=== PATIENT | female | born 1955 | race Caucasian/White ===

== ENCOUNTER 2016-09-15 16:59 | Inpatient (IN) ==
[2016-09-15] MEDS ORDERED: *HR* HYDROmorphone (PF) 1 MG/ML SYRINGE IVP ONE (20:17)
[2016-09-15] MEDS ORDERED: Ipratropium/Albuterol Neb 3 ML IH ONE (20:17)
[2016-09-15] MEDS ORDERED: Naloxone 0.4 MG/ML INJ IVP PRN (20:21)
[2016-09-15] MEDS ORDERED: Ondansetron 4 MG/2 ML VIAL IVP PRN (20:21)
[2016-09-15] MEDS ORDERED: *HR* HYDROmorphone (PF) 1 MG/ML SYRINGE IVP PRN (20:21)
[2016-09-15] MEDS ORDERED: *HR* HYDROcodone/Acet 7.5/325 mg TABLET PO PRN ×2 (20:24→20:31)
[2016-09-15] MEDS ORDERED: Ipratropium/Albuterol Neb 3 ML IH PRN (20:26)
[2016-09-15] MEDS ORDERED: 0.9 % Sodium Chloride 250 ML IVC PRN (20:30)
--- NOTE | 2016-09-15 20:32 | Internal Med History&Physical ---
Date of Encounter: 09/15/16 Time of Encounter: 20:05 Assessment and Plan (1) Hip fracture, right Current visit: Yes Status: Acute CT pelvis reports of right subcapital hip fracture with mild angulation. No dislocation Ortho follow up with Dr. Hoyos pain control patient will need cardiac clearance prior to surgery given severity of aortic regurgitation. NPO after midnight Qualifiers: Encounter type: initial encounter Fracture type: closed Qualified Code(s) : S72.001A - Fracture of unspecified part of neck of right femur, initial encounter for closed fracture (2) Hypertension Current visit: Yes Status: Chronic BP within acceptable range continue home meds Qualifiers: Hypertension type: essential hypertension Qualified Code(s): I10 - Essential (primary) hypertension (3) Aortic regurgitation Current visit: Yes Status: Chronic 2D echo from September 01, 2016: Normal LV systolic function with LVEF of 70%, mild LV diastolic dysfunction. Moderate to severe aortic regurgitation noted. SIMONE recommended for further evaluation Patient will need cardiac clearance prior to surgery Cardiology consultation requested Qualifiers: Cardiac valve disease etiology: etiology unspecified Qualified Code(s): I35.1 - Nonrheumatic aortic (valve) insufficiency (4) DVT prophylaxis Current visit: Yes Status: Acute Heparin SQ (5) Tobacco abuse Current visit: Yes Status: Acute smoking cessation counseling provided nicotine replacement therapy provided (6) COPD (chronic obstructive pulmonary disease) Current visit: Yes Status: Acute Not in acute exacerbation continue bronchodilator support and home dose of symbicort O2 supplementation goal O2 sat: 89-92% Qualifiers: COPD type: unspecified COPD Qualified Code(s): J44.9 - Chronic obstructive pulmonary disease, unspecified Internal Medicine - H&P: HPI Chief complaint: Transfer from [place] for right hip fracture Admitted From: Intrahospital Transfer Plans for Post Hospital Care: Transfer [facility] Facility History of present illness: Ms. Vásquez is a 61 year old female with PMH of HTN, COPD on LTOT, Aortic regurgitation, tobacco abuse, chronic back pain who is transferred from [place] for further management of right hip fracture. Patient states she was walking to the bathroom with her walker at home and her foot got caught in a plastic bag leading to her fall. Reports of having history of chronic back pain for which she is on opioid therapy. Denies any previous falls or fractures. Prior to her transfer she received Dilaudid 1mg IV. At this time she is noted to be hypotensive and mildly short of breath. States she wears 2LNC at rest and 4L while ambulating. Reports of being an every day smoker. States the pain is controlled if she doesn't move. Denies any chest pain or other discomfort at this time. Labs from [place]: WBC: 8.0 Hgb: 13.5 Hct: 39.4 Plt: 279 BMP: Na: 131 K: 4.2 Cl: 96 CO2: 29 Glucose: 107 BUN: 11 Crea: 0.54 Ca: 9.7 INR: 1.04 PTT: 2707 PT: 11.3 Past Med Surg Social Fam HX - Past Medical History Medical history: COPD, hypertension Internal Medicine - H&P: Meds Allergies morphine Allergy (Verified 08/15/15 11:43) Itching propoxyphene [From Darvocet-N] Allergy (Verified 08/15/15 11:42) Wheezing tramadol [From Ultram] Allergy (Verified 10/23/15 09:31) Vomiting All Systems PM: A 10-system review of systems was performed and is negative for pertinent findings except as documented above in the HPI. - Constitutional Constitutional: as per HPI - Constitutional General appearance: Present: cooperative, A&O X 3, no acute distress, answers questions appropriately - Head Head exam: Present: atraumatic, normocephalic - Eye Eye exam: Present: conjuntiva pink, sclera anicteric - Respiratory Respiratory exam: Present: decreased breath sounds. Absent: respiratory distress, wheezes - Cardiovascular Cardiovascular exam: Present: RRR, +S1, +S2, systolic murmur. Absent: diastolic murmur, gallop, rubs - GI/Abdominal GI/Abdominal exam: Present: normal bowel sounds, soft, no peritoneal signs. Absent: distended, tenderness - Extremities Exam Extremities exam: Present: warm, radial pulses palpable and symetrical. Absent : calf tenderness, pedal edema - Neurological Exam Neurological exam: Present: alert, oriented X3 - Psychiatric Psychiatric exam: Present: normal affect, normal mood
[2016-09-15] MEDS ORDERED: Nicotine 14 MG PATCH.TD24 TD PRN (20:45)
[2016-09-15] MEDS: Ipratropium/Albuterol Neb 3 ML IH SCH (21:19)
[2016-09-15] MEDS: Budesonide/Formoterol 160/4.5 MDI IH SCH (21:21)
[2016-09-16] MEDS: *HR* HYDROmorphone (PF) 1 MG/ML SYRINGE IVP PRN ×2 (02:09→09:07)
[2016-09-16] MEDS: Ipratropium/Albuterol Neb 3 ML IH SCH ×4 (04:35→22:07)
[2016-09-16 05:40] LABS: INR 1.1; Prothrombin Time 12.3 Seconds (9.4-12.1)
[2016-09-16 05:47] LABS: BUN/Creatinine Ratio 18 (6-26); Blood Urea Nitrogen 12 mg/dL (7-20); Calcium 9.4 mg/dL (8.6-10.8); Carbon Dioxide 22 mEq/L (19-29); Chloride 102 mEq/L (98-109); Glucose 95 mg/dL (70-99); Magnesium 1.9 mg/dL (1.6-2.6); Osmolality,Calculated 274 (280-300); Phosphorous 3.9 mg/dL (2.3-4.7); Potassium 3.8 mEq/L (3.5-4.5); Sodium 132 mEq/L (136-145); eGFR For African Americans > 60 (> 60); eGFR For Non-African Americans > 60 (> 60)
[2016-09-16 05:54] LABS: Basophils % 0.7 %; Eosinophils # 0.1 K/mcL (0.0-0.6); Hematocrit 35.9 % (35.3-44.9); Hemoglobin 12.1 g/dL (11.5-15.4); Immature Granulocytes % 0.3 % (0-4); Lymphocytes % 27.1 %; Mean Corpuscular HGB Conc 33.7 g/dL (31.6-35.5); Mean Corpuscular Hemoglobin 31.5 pg (28.0-33.3); Mean Corpuscular Volume 93.5 fL (83.0-100.0); Mean Platelet Volume 9.5 fL (9.4-12.4); Monocytes # 0.5 K/mcL (0.0-1.3); Monocytes % 7.6 %; Platelet Count 242 K/mcL (140-400); Red Blood Count 3.84 M/mcL (3.82-4.97); Red Cell Distribution Width 14.3 % (11.5-14.5); Segmented Neutrophils % 63.3 %
[2016-09-16] MEDS ORDERED: *HR* Heparin 5,000 UNIT/ML VIAL SQ SCH (06:00)
[2016-09-16 06:29] LABS: Lymphocytes # 1.7 K/mcL (0.6-4.6); Neutrophils # 3.9 K/mcL (1.6-8.9)
--- NOTE | 2016-09-16 07:29 | Orthopedic Consult Note ---
Date of Encounter: 09/16/16 Time of Encounter: 07:27 Assessment and Plan (1) Hip fracture, right Current Visit: Yes Status: Acute Patient sustained a Right hip subcapital fracture. XRAYS were reviewed and discussed with . Patient was ambulatory prior to fall. Recommending surgical intervention today, Right Hip Pinning. Consent was reviewed and discussed with patient, patient signed. All questions were addressed and answered. Recent echo was 09/01/16, awaiting cardiology to review and see patient for pre- operative risk assessment. Anticipate surgery today at 1300. Keep NPO. Continue with pain control. NWB, bed rest. Qualifiers: Encounter type: initial encounter Fracture type: closed Qualified Code(s) : S72.001A - Fracture of unspecified part of neck of right femur, initial encounter for closed fracture History of Present Illness Chief complaint: Fall - [facility] HPI: Ms. Vásquez is a 61 year old female, who sustained a mechanical fall at home, while walking to her bathroom. She tripped over a bag and landed on her Right side. She was transferred from [facility] for orthopedic consultation and surgical intervention of her Right subcapital hip fracture. Pain is well controlled in bed, comfortable. A&O x 3. Admits to inability to ambulate secondary to pain. Pain radiates to groin, denies N/T or radiation down RLE. Pulses and sensation intact. Denies prior hip fracture or trauma. Denies LOC or head injury with fall. PMH: Aortic regurg, last Echo 09/01/16; COPD, HTN. Past Med Surg Social Fam HX - Past Medical History Medical history: COPD, hypertension Psychiatric history: no psych history - Past Surgical History Surgical History: orthopedic, other - Social History Smoking Status: Current every day smoker Packs per day: 0.5 pk Smokeless Tobacco Status: No Alcohol use: none Drug use: marijuana - Family History Mother Living Status: Hx Family Cardiac Disorders: Yes (CVA) Medications and Allergies Albuterol Sulfate [Ventolin Hfa] 2 puff IH Q6H MDD wheezing 09/15/16 [History] Aspirin [Lo-Dose Aspirin EC] 81 mg PO DAILY 09/15/16 [History] Cholecalciferol (D-3) [Vitamin D] 1,000 unit PO QWEEK 09/15/16 [History] Fluticasone/Salmeterol [Advair 250-50 Diskus] 1 puff IH BID 09/15/16 [History] Lisinopril-HCTZ 20-12.5 [Prinzide 20-12.5] 1 each PO DAILY 09/15/16 [History] Montelukast [Singulair] 10 mg PO DAILY 09/15/16 [History] Allergies morphine Allergy (Verified 08/15/15 11:43) Itching propoxyphene [From Darvocet-N] Allergy (Verified 09/15/16 20:32) Vomiting tramadol [From Ultram] Allergy (Verified 10/23/15 09:31) Vomiting All Systems Reviewed: A 10-system review of systems was performed and is negative for pertinent findings except as documented above in the HPI. - Constitutional Constitutional: as per HPI - Cardiovascular Cardiovascular: no chest pain, no syncope - Respiratory Respiratory: no cough, no dyspnea on exertion - Musculoskeletal Musculoskeletal: as per HPI Physical Exam - Constitutional Vitals: Temp Pulse Resp BP Pulse Ox 97.9 F 74 16 87/56 97 09/16/16 07:22 09/16/16 07:22 09/16/16 07:22 09/16/16 07:22 09/16/16 07:22 - Fracture right hip Appearance: swelling, other (ER and shortened RLE) Compartments: soft Distal extremity neurovascularly intact: Yes Proximal joint involvement: No Distal joint involvement: No Results - Labs Result Diagrams: 09/16/16 05:19 09/16/16 05:19 Labs: Abnormal lab results PT 12.3 Seconds (9.4-12.1) H 09/16/16 05:19 Sodium 132 mEq/L (136-145) L 09/16/16 05:19 Calculated Osmolality 274 (280-300) L 09/16/16 05:19 H & H 09/16/16 Range/Units 05:19 Hgb 12.1 (11.5-15.4) g/dL Hct 35.9 (35.3-44.9) % All other labs normal. - Diagnostic results Hip x-ray: report reviewed, image reviewed Consult Discharge Plan - Plan Referrals: Quang Singh, [facility] [employer] [facility] [Primary Care Provider] -
[2016-09-16] MEDS ORDERED: Aspirin 81 MG TAB.CHEW PO SCH (09:00)
[2016-09-16] MEDS ORDERED: Lisinopril-HCTZ 20-12.5mg TABLET PO SCH (09:00)
--- NOTE | 2016-09-16 09:57 | Cardiology Consult Note ---
Date of Encounter: 09/16/16 Time of Encounter: 09:00 Assessment and Plan (1) Hip fracture, right Current Visit: Yes Status: Acute Per cardiology: -Patient with hip fracture after mechanical fall. -Seen by orthopedics, plan for surgery today. -Management per primary and orthopedic services. Qualifiers: Encounter type: initial encounter Fracture type: closed Qualified Code(s) : S72.001A - Fracture of unspecified part of neck of right femur, initial encounter for closed fracture (2) Aortic regurgitation Current Visit: Yes Status: Chronic Per cardiology: -Echo 09/01/16 with LVEF 70%, mild diastolic dysfunction, linear echodensity in LVOT consistent with subaortic membrance, mild LVOT obstruction with peak gradiant 26mmHg, aortic valve appears mild-moderately calcified, moderate- severe aortic regurgitation, probably severe, all wall segments with normal motion. -SIMONE was recommended per echo report. -Patient was scheduled to see tomorrow in clinic to discuss echo and options. -Patient denies peripheral edema. -Patient denies chest pain. -Patient denies increased shortness of breath, has baseline shortness of breath. -ECG with sinus rhythm. -Further work up for valve will be assessed in outpatient setting. Qualifiers: Cardiac valve disease etiology: etiology unspecified Qualified Code(s): I35.1 - Nonrheumatic aortic (valve) insufficiency (3) Pre-operative cardiovascular examination Current Visit: Yes Status: Acute Per cardiology: -Cardiac clearance for hip fracture. Surgery planned for today. -Moderate-probably severe aortic regurgitation and subaortic membrane. -Per discussion with , resonable to proceed with surgery from cardiac standpoint. However, patient is intermediate to high risk given her probable severe aortic regurgitation and subaortic membrane. -Anesthesia needs to be made aware to closely monitor hemodynamics and fluid volume status during surgery. Discussion w patient/family: The assessment and plan as outlined above was discussed with the patient who expressed understanding and agreement. All questions were answered. Thank you for involving us in the care of your patient. Please call with any questions. Discussed and reviewed with . History of Present Illness Consult date: 09/15/16 Requesting physician: Bessy Ng Consult reason: cardiac clearance Chief complaint: hip pain History of present illness: Ms. Fahad is a 61 year old female with a relevant past medical history of COPD , carotid stenosis, HTN, tobacco abuse, and aortic regurgitation. Patient presented to [facility] after fall at home. Patient states she tripped over a bag. Patient was noted to have hip fracture and was seen by orthopedics. Patient states she did not lose consciousness with this fall, however she has had two syncopal episodes in the past month. Patient was seen by July to establish cardiac care. Patient had echocardiogram completed. Patient denies chest pain. Patient denies increased shortness of breath. Patient states shortness of breath is about baseline. Patient states she wears 2-4LPM per nasal cannula of O2 at home, most of the time. Patient follows with pulmonary. Patient states fatigue is about baseline. Past Med Surg Social Fam HX - Past Medical History Attestation: Yes The following information was validated with the patient. Source: patient, old records reviewed Medical history: COPD, hypertension Psychiatric history: no psych history - Past Surgical History Surgical History: orthopedic, other - Social History Smoking Status: Current every day smoker Packs per day: 0.5 pk Smokeless Tobacco Status: No Alcohol use: none Drug use: marijuana - Family History Mother Living Status: Hx Family Cardiac Disorders: Yes (CVA) Medications and Allergies Albuterol Sulfate [Ventolin Hfa] 2 puff IH Q6H MDD wheezing 09/15/16 [History] Aspirin [Lo-Dose Aspirin EC] 81 mg PO DAILY 09/15/16 [History] Cholecalciferol (D-3) [Vitamin D] 1,000 unit PO QWEEK 09/15/16 [History] Fluticasone/Salmeterol [Advair 250-50 Diskus] 1 puff IH BID 09/15/16 [History] Lisinopril-HCTZ 20-12.5 [Prinzide 20-12.5] 1 each PO DAILY 09/15/16 [History] Montelukast [Singulair] 10 mg PO DAILY 09/15/16 [History] Allergies morphine Allergy (Verified 08/15/15 11:43) Itching propoxyphene [From Darvocet-N] Allergy (Verified 09/15/16 20:32) Vomiting tramadol [From Ultram] Allergy (Verified 10/23/15 09:31) Vomiting All Systems Review: A 10-system review of systems was performed and is negative for pertinent findings except as documented above in the HPI. - Cardiovascular Cardiovascular: as per HPI, lightheadedness, syncope - Musculoskeletal Musculoskeletal: other (Hip pain) Physical Examination Vital Signs, Last 4 Hours Temp Pulse Resp BP Pulse Ox 09/16/16 09:02 113/59 09/16/16 07:22 97.9 F 74 16 87/56 97 General: Conversant, No Apparent Distress HEENT: Atraumatic, Normocephaly, Mucus Membranes Moist Neck: No JVD, Normal carotid pulses Cardiac: Reg Rate and Rhythm, Normal S1 and S2, Other (Diastolic murmur noted. ) Lungs: Normal Breath Sounds, No Wheeze, Rales, Rhonchi Neuro: Alert and responsive, No focal deficits noted Abdomen: Soft, Non-Tender Skin: No rashes noted on visualized skin Musculoskeletal: No Chest Wall Tenderness Extremities: No Clubbing, No Cyanosis, No Edema, Normal Pulses Results 09/16/16 05:19 09/16/16 05:19 Lab Results Active Medications Hydrocodone Bitart/Acetaminophen ([place] 7.5-325 Mg) 1 tab PO Q6HR PRN PRN Reason: Moderate Pain Stop: 03/17/17 20:25 Albuterol/Ipratropium (Duoneb) 3 ml IH [id number] PRN; Protocol PRN Reason: Shortness Of Breath/Wheezing Stop: 03/17/17 20:27 Albuterol/Ipratropium (Duoneb) 3 ml IH [id number] [place] PRN Reason: Protocol Stop: 03/17/17 22:01 Last Admin: 09/16/16 04:35 Dose: 3 ml Aspirin (Aspirin) 81 mg PO DAILY [facility] Stop: 03/18/17 09:01 Last Admin: 09/16/16 09:04 Dose: Not Given Budesonide/Formoterol Fumarate (Symbicort) 2 puff IH BIDR [place] PRN Reason: Protocol Stop: 03/17/17 22:01 Last Admin: 09/15/16 21:21 Dose: 2 puff Docusate Sodium (Colace) 100 mg PO BID PRN PRN Reason: Constipation Stop: 03/17/17 20:22 Lisinopril/HCTZ (Prinzide 20-12.5) 1 each PO DAILY [facility] Stop: 03/18/17 09:01 Last Admin: 09/16/16 07:28 Dose: Not Given Heparin Sodium (Porcine) (Heparin) 5,000 unit SQ Q12HCO [facility] Stop: 03/18/17 06:01 Last Admin: 09/16/16 06:39 Dose: 5,000 unit Hydromorphone HCl (Dilaudid) 1 mg IVP Q4HR PRN PRN Reason: Severe Pain (7-10) Stop: 03/17/17 20:22 Last Admin: 09/16/16 09:07 Dose: 1 mg Sodium Chloride (0.9 % Sodium Chloride) 250 mls @ 937.5 mls/hr IVC .Q16M PRN PRN Reason: MAP<65 Stop: 03/17/17 20:31 Last Infusion: 09/16/16 07:30 Dose: Infused Montelukast Sodium (Singulair) 10 mg PO DAILY [facility] Stop: 03/18/17 09:01 Last Admin: 09/16/16 09:03 Dose: Not Given Naloxone HCl (Narcan) 0.4 mg IVP Q2MIN PRN PRN Reason: Opioid Reversal Stop: 03/17/17 20:22 Nicotine (Nicoderm) 14 mg TD DAILY PRN; Protocol PRN Reason: nicotine withdrawal Stop: 03/18/17 09:01 Ondansetron HCl (Zofran) 4 mg IVP Q6HR PRN PRN Reason: Nausea And Vomiting Stop: 03/17/17 20:22 Laboratory Tests 09/16/16 09/16/16 05:19 05:19 Hgb 12.1 Potassium 3.8 Creatinine 0.65 Magnesium 1.9 - Imaging and Cardiology Echo: report reviewed - EKG Interpretation EKG results cardiology: personally reviewed (ECG from outside facility reviewed with sinus rhythm, HR 89.), other (Not on telemetry) Consult Discharge Plan - Plan Referrals: Quang Singh, [facility] [employer] [Primary Care Provider] -
[2016-09-16] MEDS: Budesonide/Formoterol 160/4.5 MDI IH SCH ×2 (10:10→22:07)
--- NOTE | 2016-09-16 11:10 | Anesthesia Evaluation PreOp ---
Date of Encounter: 09/16/16 Time of Encounter: 11:08 - Past History Planned Operation: r hip tfn Cardiac History: HTN, Other (echo 09/05: ef 70, mild LVOT obstruction at rest, nl rv. 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, Other (carotid doppler 08/05: r prox ica severe 60-79, l ica mod 40-59) Other Medical History: Denies Any Significant HX Anesthesia History: No Prior Anesthetic Complications, Past Anesthesia Alcohol Use: none Drug use: marijuana Medications and Allergies Albuterol Sulfate [Ventolin Hfa] 2 puff IH Q6H MDD wheezing 09/15/16 [History] Aspirin [Lo-Dose Aspirin EC] 81 mg PO DAILY 09/15/16 [History] Cholecalciferol (D-3) [Vitamin D] 1,000 unit PO QWEEK 09/15/16 [History] Fluticasone/Salmeterol [Advair 250-50 Diskus] 1 puff IH BID 09/15/16 [History] Lisinopril-HCTZ 20-12.5 [Prinzide 20-12.5] 1 each PO DAILY 09/15/16 [History] Montelukast [Singulair] 10 mg PO DAILY 09/15/16 [History] Allergies morphine Allergy (Verified 08/15/15 11:43) Itching propoxyphene [From Darvocet-N] Allergy (Verified 09/15/16 20:32) Vomiting tramadol [From Ultram] Allergy (Verified 10/23/15 09:31) Vomiting - Meds/Allergy Pre-op Review Medications Reviewed: Yes Allergies Reviewed: Yes Beta Blockers on Current Med List: No Anesthesia Results - Labs 09/16/16 05:19 09/16/16 05:19 Anesthesia Exam O2 Sat Height 1.73 m Weight 65.3 kg O2 Sat by Pulse Oximetry 97 O2 Sat by Pulse Oximetry 97 O2 Sat by Pulse Oximetry 98 O2 Sat by Pulse Oximetry 99 O2 Sat by Pulse Oximetry 92 O2 Sat by Pulse Oximetry 99 O2 Sat by Pulse Oximetry 96 O2 Sat by Pulse Oximetry 95 Vital Signs Resp Pulse Ox 18 95 09/15/16 20:32 09/15/16 20:32 Vital Signs/O2 Sat/Glucose, Most Current Temp Pulse Resp BP Pulse Ox 09/16/16 10:12 16 97 09/16/16 09:02 113/59 09/16/16 07:22 97.9 F 74 16 87/56 97 Height: 1.73 Weight: 65 NPO (# of Hours): >8 - HEENT Pupil (Motor): Pupils equal - 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 disc all potentials with pt.) Modified Circle Scale for Level of Consciousness: Cooperative, oriented, and tranquil Anesthetic Plan: General Monitoring Plan: Standard Monitors Recovery Plan: PACU
[2016-09-16] MEDS ORDERED: Lidocaine -MPF 2% 2 ML VIAL ONE (14:48)
[2016-09-16] MEDS ORDERED: *HR* Propofol 200 MG/20 ML VIAL IVP ONE (14:48)
[2016-09-16] MEDS ORDERED: *HR* Succinylcholine 200 MG/10 ML VIAL IVP ONE (14:48)
[2016-09-16] MEDS ORDERED: *HR* Midazolam HCl 2 MG/2 ML VIAL ONE (14:50)
[2016-09-16] MEDS ORDERED: *HR* FentaNYL (PF) 100 MCG/2 ML VIAL ONE ×2 (14:50→15:38)
[2016-09-16] MEDS ORDERED: *HR* HYDROmorphone (PF) 1 MG/ML SYRINGE IVP PRN ×3 (14:51→17:24)
[2016-09-16] MEDS ORDERED: Ondansetron 4 MG/2 ML VIAL IVP ONE ×2 (14:51→17:24)
[2016-09-16] MEDS ORDERED: *HR* Labetalol 20 MG/4 ML SYRINGE IVP PRN ×2 (14:51→17:24)
[2016-09-16] MEDS ORDERED: Albuterol 2.5 MG/3 ML NEBULIZER IH ONE ×2 (14:51→17:24)
[2016-09-16] MEDS ORDERED: *HR* Meperidine 25 MG/ML SYRINGE IVP PRN ×2 (14:51→17:24)
[2016-09-16] MEDS ORDERED: Naloxone 0.4 MG/ML INJ IVP PRN ×4 (14:51→17:24)
[2016-09-16] MEDS ORDERED: EPHEDrine 50 MG/ML VIAL ONE (14:58)
[2016-09-16] MEDS ORDERED: 0.9 % Sodium Chloride 1,000 ML IVC SCH (15:00)
[2016-09-16] MEDS ORDERED: Dexamethasone 4 MG/ML VIAL ONE (15:10)
[2016-09-16] MEDS ORDERED: Ondansetron 4 MG/2 ML VIAL ONE (15:10)
--- NOTE | 2016-09-16 15:31 | Orthopedic Operative Note ---
Date of procedure: 09/16/16 Pre-op diagnosis: Nondisplaced right hip fracture Post-op diagnosis: same Procedure: Procedure: Right hip open pinning Estimated blood loss: 5 cc Hardware: 2 Synthes 7.3 cannulated metal screws Procedural Notes: Nondisplaced femoral neck fracture. Operative procedure: The patient was brought to the operating room and placed on the operating room table. After general anesthesia was administered the well leg was place in the well leg bennett and the operative leg was placed in the fracture leg bennett. All pressure points were padded appropriately. The operative extremity was prepped and draped in the sterile surgical fashion patient received IV antibiotic prior to skin incision. Using fluoroscopic assistance a guidepin was placed through a small stab incision on the lateral aspect of the femur. Placed through the lateral femur across the fracture site into the femoral head addition of the guidepin was found to be acceptable in AP and lateral planes. A second guidepin was placed in an appropriate position and confirmed with fluoroscopy. Two 7.3 cannulated screws were placed over the guidepins, and their position was confirmed with fluoroscopy as well. Hardware as well as fracture site was well reduced and well positioned. Wound was irrigated and closed with a 2-0 Monocryl suture The patient was placed in a sterile dressing The patient was extubated and transferred to the recovery room in stable condition. Anesthesia: GETA Surgeon: Willis Hoyos Condition: stable Disposition: PACU
--- NOTE | 2016-09-16 16:22 | Internal Med Progress Note ---
Date of Encounter: 09/16/16 Time of Encounter: 16:20 - Assessment and plan (1) Hip fracture, right Current Visit: Yes Status: Acute Assessment and plan: Patient sustained a Right hip subcapital fracture. underwent Right hip open pinning with DR. Hoyos today. post op care as per ortho ensure DVT prophylaxis. Qualifiers: Encounter type: initial encounter Fracture type: closed Qualified Code(s) : S72.001A - Fracture of unspecified part of neck of right femur, initial encounter for closed fracture (2) Hypertension Current Visit: Yes Status: Chronic Assessment and plan: BP within acceptable range continue home meds Qualifiers: Hypertension type: essential hypertension Qualified Code(s): I10 - Essential (primary) hypertension (3) COPD (chronic obstructive pulmonary disease) Current Visit: Yes Status: Acute Assessment and plan: not in exacerbation, contiue home meds Qualifiers: COPD type: unspecified COPD Qualified Code(s): J44.9 - Chronic obstructive pulmonary disease, unspecified (4) Aortic regurgitation Current Visit: Yes Status: Chronic Assessment and plan: Per cardiology: -Echo 09/01/16 with LVEF 70%, mild diastolic dysfunction, linear echodensity in LVOT consistent with subaortic membrance, mild LVOT obstruction with peak gradiant 26mmHg, aortic valve appears mild-moderately calcified, moderate- severe aortic regurgitation, probably severe, all wall segments with normal motion. -SIMONE was recommended per echo report. -Patient was scheduled to see tomorrow in clinic to discuss echo and options. -Patient denies peripheral edema. -Patient denies chest pain. -Patient denies increased shortness of breath, has baseline shortness of breath. -ECG with sinus rhythm. -Further work up for valve will be assessed in outpatient setting. Qualifiers: Cardiac valve disease etiology: etiology unspecified Qualified Code(s): I35.1 - Nonrheumatic aortic (valve) insufficiency - Subjective Interval history: seen at the bedside, he presents with hip fracture caused by mechanical fall. She is at intermediate-high risk of cardiovascular complications as per cardiology. denies any complains at the bedside, planned for surgery today with dr. Hoyos - Constitutional Vitals: Temp Pulse Resp BP Pulse Ox 98.6 F 85 14 127/63 92 09/16/16 15:45 09/16/16 16:05 09/16/16 16:05 09/16/16 16:05 09/16/16 16:05 General appearance: Present: cooperative, A&O X 3, no acute distress, answers questions appropriately Exam: HEENT: Atraumatic, Normocephaly, Mucus Membranes Moist Neck: No JVD, Normal carotid pulses Cardiac: Reg Rate and Rhythm, Normal S1 and S2, Other (Diastolic murmur noted. ) Lungs: Normal Breath Sounds, No Wheeze, Rales, Rhonchi Neuro: Alert and responsive, No focal deficits noted Abdomen: Soft, Non-Tender Skin: No rashes noted on visualized skin Musculoskeletal: No Chest Wall Tenderness Extremities: No Clubbing, No Cyanosis, No Edema, Normal Pulses Internal Medicine: Result - Labs CBC & Chem 7: 09/16/16 05:19 09/16/16 05:19 Labs: Short CBC 09/16/16 Range/Units 05:19 WBC 6.1 (4.3-11.1) K/mcL Hgb 12.1 (11.5-15.4) g/dL Hct 35.9 (35.3-44.9) % Plt Count 242 (140-400) K/mcL Neutrophils # 3.9 (1.6-8.9) K/mcL BMP 09/16/16 05:19 Sodium 132 L Potassium 3.8 Chloride 102 Carbon Dioxide 22 BUN 12 Creatinine 0.65 Glucose 95 Calcium 9.4 - ABG Interpretation ABG results: PT/INR, D-dimer PT 12.3 Seconds (9.4-12.1) H 09/16/16 05:19 - Impressions Impressions Fluoroscopy 09/16/16 15:10 IMPRESSION: Intraprocedural fluoroscopic spot images as above. See separate procedure report for more information. D/ / Paula Umana MD / Paula Umana MD Interpreting Provider: Paula Umana MD Consult Discharge Plan - Plan Referrals: Quang Singh, PULMONOLOGIST/INTENSIVIST [Primary Care Provider] -
--- NOTE | 2016-09-16 16:39 | Anesthesia Evaluation Post Op ---
Date of Encounter: 09/16/16 Time of Encounter: 16:39 - Vital Signs Vital Signs: Vital Signs/O2 Sat/Glucose, Most Current Temp Pulse Resp BP Pulse Ox 09/16/16 16:24 83 12 111/46 95 09/16/16 16:15 98.9 F 88 14 122/61 92 09/16/16 16:05 85 14 127/63 92 09/16/16 15:55 85 12 126/62 95 09/16/16 15:45 98.6 F 92 16 123/63 99 - Lungs Lungs: Clear Ascult./Percussion - Airway Airway: Non-obstructed - Cardiovascular Regular Rate - Mental Status Mental Status: Alert & Oriented, Answers Appropriately - Pain Pain Scale: 0 - Nausea Vomiting Nausea Vomiting: Not Present - Hydration Hydration: Ice chips - Discharge PostOp Status: Transfer Patient to floor
[2016-09-16] MEDS ORDERED: 0.9 % Sodium Chloride 500 ML IVC SCH (17:24)
[2016-09-16] MEDS ORDERED: Ipratropium/Albuterol Neb 3 ML IH PRN (17:24)
[2016-09-16] MEDS ORDERED: 0.9 % Sodium Chloride 250 ML IVC PRN (17:24)
[2016-09-16] MEDS ORDERED: Ondansetron 4 MG/2 ML VIAL IVP PRN (17:24)
[2016-09-16] MEDS ORDERED: Nicotine 14 MG PATCH.TD24 TD PRN (17:24)
[2016-09-16] MEDS: *HR* HYDROcodone/Acet 7.5/325 mg TABLET PO PRN (17:56)
[2016-09-16] MEDS: *HR* Heparin 5,000 UNIT/ML VIAL SQ SCH (17:57)
[2016-09-16] MEDS: ceFAZolin 2,000 MG in D5% in Water 100 ML IVPB SCH (17:58)
[2016-09-17] MEDS: *HR* HYDROcodone/Acet 7.5/325 mg TABLET PO PRN ×3 (00:29→20:43)
[2016-09-17] MEDS: ceFAZolin 2,000 MG in D5% in Water 100 ML IVPB SCH (02:01)
[2016-09-17] MEDS: Ipratropium/Albuterol Neb 3 ML IH SCH ×4 (04:23→22:54)
[2016-09-17] MEDS: *HR* Heparin 5,000 UNIT/ML VIAL SQ SCH ×2 (06:41→17:40)
[2016-09-17 08:06] LABS: Hematocrit 38.5 % (35.3-44.9); Hemoglobin 12.7 g/dL (11.5-15.4)
--- NOTE | 2016-09-17 08:30 | Orthopedics Progress Note ---
Date of Encounter: 09/17/16 Time of Encounter: 08:30 Subjective Interval history: Patient was seen this morning doing well without complaints. Afebrile vital signs stable. Operative extremity: Neurovascularly intact Dressing clean dry and intact Calves nontender Assessment and plan: Continue with postoperative care Stable for discharge Objective Vital signs: Vital Signs Temp Pulse Resp BP Pulse Ox 09/17/16 07:13 97.9 F 73 16 126/61 98 09/17/16 04:23 17 97 09/17/16 04:02 98.5 F 73 16 103/48 97 09/16/16 23:29 97.6 F 82 18 111/63 100 09/16/16 22:07 22 96 09/16/16 19:16 98.5 F 60 18 112/60 94 09/16/16 19:02 97.8 F 94 16 105/94 09/16/16 18:05 97.9 F 78 16 130/68 98 09/16/16 17:30 98.1 F 88 16 129/65 99 09/16/16 17:02 97.6 F 86 16 131/60 09/16/16 16:35 98.0 F 83 14 131/62 93 09/16/16 16:25 83 12 111/46 95 09/16/16 16:15 98.9 F 88 14 122/61 92 09/16/16 16:05 85 14 127/63 92 09/16/16 15:55 85 12 126/62 95 09/16/16 15:45 98.6 F 92 16 123/63 99 09/16/16 11:20 98.2 F 69 18 101/60 98 09/16/16 10:12 16 97 09/16/16 09:02 113/59 Intake and Output 09/16/16 09/17/16 09/17/16 23:59 07:59 15:59 Intake Total 340 / 340 Output Total 450 / 450 800 / 800 Balance -110 / -110 -800 / -800 Intake: IV Fluids 100 / 100 Ancef 2,000 MG In 100 / 100 Dextrose 5% 100 ML @ 200 mls/hr IVPB Q8H [facility] Rx#: [id number] Oral 240 / 240 Output: Catheter 450 / 450 800 / 800 Other: Meal Dinner Percent of Meal Consumed 100% Weight 61.5 kg Patient Weight 09/17/16 23:59 Weight 61.5 kg - Labs CBC & BMP: 09/17/16 07:27 09/16/16 05:19 Labs: Abnormal lab results PT 12.3 Seconds (9.4-12.1) H 09/16/16 05:19 Sodium 132 mEq/L (136-145) L 09/16/16 05:19 Calculated Osmolality 274 (280-300) L 09/16/16 05:19 - VTE Documentation of Mechanical Device: Venous foot pump, device Consult Discharge Plan - Plan Referrals: Quang Singh, SALES SERVICE EXECUTIVE [Primary Care Provider] -
[2016-09-17] MEDS: Lisinopril-HCTZ 20-12.5mg TABLET PO SCH (09:07)
[2016-09-17] MEDS: Aspirin 81 MG TAB.CHEW PO SCH (09:08)
[2016-09-17] MEDS: Budesonide/Formoterol 160/4.5 MDI IH SCH ×2 (11:00→22:54)
--- NOTE | 2016-09-17 17:22 | Internal Med Progress Note ---
Date of Encounter: 09/17/16 Time of Encounter: 17:20 - Assessment and plan (1) Hip fracture, right Current Visit: Yes Status: Acute Assessment and plan: Patient sustained a Right hip subcapital fracture. underwent Right hip open pinning with DR. Hoyos , POD#1 post op care as per ortho ensure DVT prophylaxis. Qualifiers: Encounter type: initial encounter Fracture type: closed Qualified Code(s) : S72.001A - Fracture of unspecified part of neck of right femur, initial encounter for closed fracture (2) Hypertension Current Visit: Yes Status: Chronic Assessment and plan: BP within acceptable range continue home meds Qualifiers: Hypertension type: essential hypertension Qualified Code(s): I10 - Essential (primary) hypertension (3) COPD (chronic obstructive pulmonary disease) Current Visit: Yes Status: Acute Assessment and plan: not in exacerbation, contiue home meds Qualifiers: COPD type: unspecified COPD Qualified Code(s): J44.9 - Chronic obstructive pulmonary disease, unspecified (4) Aortic regurgitation Current Visit: Yes Status: Chronic Assessment and plan: Per cardiology: -Echo 09/01/16 with LVEF 70%, mild diastolic dysfunction, linear echodensity in LVOT consistent with subaortic membrance, mild LVOT obstruction with peak gradiant 26mmHg, aortic valve appears mild-moderately calcified, moderate- severe aortic regurgitation, probably severe, all wall segments with normal motion. -SIMONE was recommended per echo report. -Patient was scheduled to see tomorrow in clinic to discuss echo and options. -Patient denies peripheral edema. -Patient denies chest pain. -Patient denies increased shortness of breath, has baseline shortness of breath. -ECG with sinus rhythm. -Further work up for valve will be assessed in outpatient setting. Qualifiers: Cardiac valve disease etiology: etiology unspecified Qualified Code(s): I35.1 - Nonrheumatic aortic (valve) insufficiency - Subjective Interval history: seen at the bedside, she presented with hip fracture caused by mechanical fall. s/p surgery with dr. Hoyos, today is POD#1 no new complains - Constitutional Vitals: Temp Pulse Resp BP Pulse Ox 97.6 F 76 14 125/69 98 09/17/16 16:19 09/17/16 16:19 09/17/16 16:19 09/17/16 16:19 09/17/16 16:19 General appearance: Present: cooperative, A&O X 3, no acute distress, answers questions appropriately Exam: neck- supple chest- b/lc lear cvs-s1 and s2, no mr//g abd-soft, non tender, bs are present ext- no edema neuro- no focal defecits Internal Medicine: Result - Labs CBC & Chem 7: 09/17/16 07:27 09/16/16 05:19 Labs: Short CBC 09/17/16 Range/Units 07:27 Hgb 12.7 (11.5-15.4) g/dL Hct 38.5 (35.3-44.9) % - ABG Interpretation ABG results: PT/INR, D-dimer PT 12.3 Seconds (9.4-12.1) H 09/16/16 05:19 - VTE Documentation of Mechanical Device: Venous foot pump, device Consult Discharge Plan - Plan Referrals: Quang Singh, TIMBER CRUISER [Primary Care Provider] -
[2016-09-18] MEDS: Ipratropium/Albuterol Neb 3 ML IH SCH ×3 (03:26→15:37)
[2016-09-18] MEDS: *HR* Heparin 5,000 UNIT/ML VIAL SQ SCH (05:34)
[2016-09-18] MEDS: Aspirin 81 MG TAB.CHEW PO SCH (08:40)
[2016-09-18] MEDS: Lisinopril-HCTZ 20-12.5mg TABLET PO SCH (08:40)
[2016-09-18] MEDS: Budesonide/Formoterol 160/4.5 MDI IH SCH (11:28)
--- NOTE | 2016-09-18 12:59 | Orthopedics Progress Note ---
Date of Encounter: 09/18/16 Time of Encounter: 08:00 - Assessment and Plan (1) Hip fracture, right Current Visit: Yes Status: Acute NWB to RLE, No hip ROM exercises. Qualifiers: Encounter type: initial encounter Fracture type: closed Qualified Code(s) : S72.001A - Fracture of unspecified part of neck of right femur, initial encounter for closed fracture Subjective Principal diagnosis: Right Hip Pinning, s/p fracture due to fall Interval history: POD#2 - Right Hip pinning. Patient was seen this morning doing well without complaints. Afebrile, vital signs stable. Operative extremity: Neurovascularly intact Dressing clean dry and intact Calves nontender Assessment and plan: Continue with postoperative care H/H stable. Plan for D/C to Home with HH this AM. NWB, no hip ROM exercises. Objective Vital signs: Vital Signs Temp Pulse Resp BP Pulse Ox 09/18/16 11:45 97.7 F 83 14 132/62 100 09/18/16 11:27 16 98 09/18/16 07:07 98.4 F 77 14 127/65 96 09/18/16 03:26 16 100 09/17/16 23:53 98.7 F 94 17 110/55 95 09/17/16 22:54 18 96 09/17/16 19:37 97.8 F 91 19 155/70 97 09/17/16 16:19 97.6 F 76 14 125/69 98 09/17/16 16:01 14 95 Intake and Output 09/17/16 09/18/16 09/18/16 23:59 07:59 15:59 Intake Total 240 / 240 Balance 240 / 240 Intake: Oral 240 / 240 Other: Meal Dinner Percent of Meal Consumed 100% # Voids 1 Incision: clean and dry - Labs CBC & BMP: 09/17/16 07:27 09/16/16 05:19 Labs: Abnormal lab results PT 12.3 Seconds (9.4-12.1) H 09/16/16 05:19 Sodium 132 mEq/L (136-145) L 09/16/16 05:19 Calculated Osmolality 274 (280-300) L 09/16/16 05:19 - VTE Documentation of Mechanical Device: Venous foot pump, device Consult Discharge Plan - Plan Referrals: Quang Singh, MANAGER COMM[employer]ITY [employer]ELOPMENT [Primary Care Provider] -
--- NOTE | 2016-09-18 15:20 | Discharge Summary ---
Date of Encounter: 09/18/16 Time of Encounter: 15:18 - Discharge Diagnosis (1) Hip fracture, right Priority: Primary Status: Acute Qualifiers: Encounter type: initial encounter Fracture type: closed Qualified Code(s) : S72.001A - Fracture of unspecified part of neck of right femur, initial encounter for closed fracture (2) Hypertension Priority: Secondary Status: Chronic Qualifiers: Hypertension type: essential hypertension Qualified Code(s): I10 - Essential (primary) hypertension (3) COPD (chronic obstructive pulmonary disease) Priority: Secondary Status: Acute Qualifiers: COPD type: unspecified COPD Qualified Code(s): J44.9 - Chronic obstructive pulmonary disease, unspecified (4) Aortic regurgitation Priority: Secondary Status: Chronic Qualifiers: Cardiac valve disease etiology: etiology unspecified Qualified Code(s): I35.1 - Nonrheumatic aortic (valve) insufficiency - Discharge Medications Prescriptions: HYDROcodone/Acet 7.5/325 mg [[place] 7.5-325 mg] 1 tab PO Q6HR PRN #30 tablet PRN Reason: Moderate Pain Mag Hydrox/Al Hydrox/Simeth [Maalox] 30 ml PO Q6H 30 Days Home Medications: Albuterol Sulfate [Ventolin Hfa] 2 puff IH Q6H MDD wheezing 09/15/16 [History] Aspirin [Lo-Dose Aspirin EC] 81 mg PO DAILY 09/15/16 [History] Cholecalciferol (D-3) [Vitamin D] 1,000 unit PO QWEEK 09/15/16 [History] Fluticasone/Salmeterol [Advair 250-50 Diskus] 1 puff IH BID 09/15/16 [History] Lisinopril-HCTZ 20-12.5 [Prinzide 20-12.5] 1 each PO DAILY 09/15/16 [History] Montelukast [Singulair] 10 mg PO DAILY 09/15/16 [History] HYDROcodone/Acet 7.5/325 mg [[place] 7.5-325 mg] 1 tab PO Q6HR PRN #30 tablet [Rx] Mag Hydrox/Al Hydrox/Simeth [Maalox] 30 ml PO Q6H 30 Days 09/18/16 [Rx] Allergies/Adverse Reactions: Allergies morphine Allergy (Verified 08/15/15 11:43) Itching propoxyphene [From Darvocet-N] Allergy (Verified 09/15/16 20:32) Vomiting tramadol [From Ultram] Allergy (Verified 10/23/15 09:31) Vomiting Date of admission: 09/15/16 19:34 Primary care physician: Quang Singh CNP Consults: 09/15/16 20:28 Consult to Cardiology [CONS] Routine Comment: Consulting Provider: Rajesh Perez Reason for Consult: needs cardiac clearance for surgery, history of moderate to severe aortic regurgitation Call Completed: No 09/16/16 17:24 Consult to Occupational Therapy [CONS] Routine Comment: Evaluate, develop and implement POC Reason for Consult: post hip surgery Consult to Orthopedic Navigator [CONS] [CONS] Routine Consult to Physical Therapy [CONS] Routine Comment: Evaluate, develop and implement POC Reason for Consult: post hip surgery Consult to Bucket Chucker [CONS] Routine Reason for SW Consult: post -op hip fracture RT Post Op Consult [CONS] Routine Discharging clinician: Angel Rosen Anticipated date of discharge: 09/18/16 - Patient Status Disposition: Home Health Service Condition: Fair Functional capacity at discharge: uses cane/walker Overall status at discharge: patient is progressing back to baseline - Discharge Instructions Follow Up With: Quang Singh CNP [Primary Care Provider] - Additional Instructions: Discharge Instructions: Total Hip Replacement Please call [facility] ([phone]), your Primary Care Physician, or report to the Emergency Room if you have any of the following symptoms: Nausea, vomiting, fever greater that 101.5, swelling, chest pain, shortness of breath, increased pain/redness/drainage/odor for your incision site, numbness/ tingling, or any other concerning symptoms. ACTIVITY:Non-weight bearing with hip dislocation precautions that physical therapy taught you. You may progress as tolerated under the guidance of your physical therapist. You do not need to sleep with a pillow between your legs. You can also seep on the operative side or on your stomach. MEDICATIONS: Upon discharge resume your home medications. Take all the medications as prescribed. Take a stool softener if taking narcotic pain medications. Stool softeners are only effective if you drink enough fluids. Drink 6-8 glass of water or fluids a day, unless this is not allowed for another health problem. Despite using stool softeners, if you haven't had a bowel movement in 3 days, please switch to a gentle laxative. Gentle laxatives are sold over the counter. You should have a bowel movement within 24 hours, if not call the office. You will be discharged from the hospital with a prescription for pain medication. You are encouraged to decrease the use of narcotic pain medication as tolerated. Should you require a refill, please call the office. [facility] prescribes narcotic pain medication for only 4-6 weeks after surgery. If you require pain medication beyond this time period, you may be referred to your Primary Care Physician or to the Pain Clinic for further evaluation. Plan ahead for refills on pain medication as many narcotics either need to be picked up at the office or mailed. It is best to call 48-72 hours in advance of needing a prescription refill so you don't run out of medication. To help control the post-operative pain, you may take NSAIDs (Aleve,Advil, Motrin, ibuprofen, naprosyn) or Tylenol as prescribed on the bottle in addition to the pain medication. ANTICOAGULATION (blood thinners): Continue your Aspirin, Lovenox or Coumadin as prescribed to help prevent a blood clot in the leg or in the lungs. As long as your incision remains dry and you tolerate the NSAIDs (Aleve, Advil, Motrin, Ibuprofen, Naprosyn), it is OK to use the NSAIDS while you are taking your anticoagulation medication. Should your incision start to drain, stop the NSAID and contact our office. Common symptoms of blood clot in the legs include: localized pain, swelling, calf tenderness, redness or discoloration of the skin. Blood clot in the lung symptoms include: shortness of breath, rapid pulse, sweating, and chest pain that worsens with deep breathing, coughing up blood, lightheadedness, feelings of anxiety. If you experience any of these symptoms notify your physician immediately, go to the emergency room, or if having trouble breathing, call 911. WOUND CARE: Leave the dressing on for 7 to 10days. You may change the dressing if it is saturated greater than 50%. Do not get the dressing wet at anytime. Wash your hands with antibacterial soap, rinse and dry prior to any wound care. If you have castillo the visiting nurse or rehab facility can remove the stapes 10-14 days after surgery and place steri-strips across the wound. Leave the steri-strips in place until they fall off on their own. You may let water from the shower run on top of the steri-strips. If you do not have a visiting nurse or rehab facility, you will need to return to the office at 10-14 days for the castillo to be removed. If you have itching or redness around the dressing call the office. FOLLOW-UP: Please follow up with your surgeon in the orthopedic clinic in 6 weeks from the day of surgery. If you have castillo that need to be removed, you will need to come back to the office in 10-14 days from the day of surgery. - Diet and Activity Activity: as per physical therapy Diet: advance to your usual diet Interval History: Ms. Vásquez is a 61 year old female, who sustained a mechanical fall at home, while walking to her bathroom. She tripped over a bag and landed on her Right side. She was transferred from [facility] for orthopedic consultation and surgical intervention of her Right subcapital hip fracture. Pain is well controlled in bed, comfortable. A&O x 3. Admits to inability to ambulate secondary to pain. Pain radiates to groin, denies N/T or radiation down RLE. Pulses and sensation intact. Denies prior hip fracture or trauma. Denies LOC or head injury with fall. Recent TTE showed normal LV function (LVEF 70%) with a linear LVOT echodensity consistent with a subaortic membrane causing mild LVOT obstruction at rest and moderate-severe (probably severe) aortic regurgitation. She also has carotid artery stenois (60-79% stenosis of STEPHANIE, 40-59% stenosis of LICA), following with Dr. Duron.cardiology was consulted pre op risk assement and recommended f /u after dc as OP. she underwent Right hip open pinning with DR. Hoyos ands remained stable post operatively. bedside PT/OT was consulted and ahd recommneded inpt. rehab however she refused and is being dc to home in stable condition with . Hospital course: Ms. Vásquez is a 61 year old female - Time Spent with Patient Total time spent providing and/or coordinating discharge services: - Constitutional Vitals: Temp Pulse Resp BP Pulse Ox 97.7 F 83 14 132/62 100 06/30/17 11:45 09/18/16 11:45 09/18/16 11:45 09/18/16 11:45 09/18/16 11:45 General appearance: Present: cooperative, A&O X 3, no acute distress, answers questions appropriately Exam: neck- supple chest- b/lc lear cvs-s1 and s2, no mr//g abd-soft, non tender, bs are present ext- no edema neuro- no focal defecits - VTE Documentation of Mechanical Device: Venous foot pump, device
--- NOTE | 2016-09-18 15:22 | Physician Discharge Referral ---
Home Health/Hosp Referral Info Transfer to: Home Health Attending Provider: barrera bradford - Diagnosis (1) Hip fracture, right Status: Acute (2) Hypertension Status: Chronic (3) COPD (chronic obstructive pulmonary disease) Status: Acute (4) Aortic regurgitation Status: Chronic - Respiratory Orders Smoking Cessation: Smoking cessation has been advised. For more information, call the [place] Tobacco Quit Line at 4-369-KGWD-NOW. - Diet/Nutrition Diet/Nutrition Orders: Regular - Activity Activity Orders: Up ad clif, Ambulate - Services Needed Following services are medically necessary services: Nursing, Home Health Aide, Physical Therapy, Occupational Therapy - Transfer Medications Prescriptions: HYDROcodone/Acet 7.5/325 mg [[place] 7.5-325 mg] 1 tab PO Q6HR PRN #30 tablet PRN Reason: Moderate Pain Home Medications: Albuterol Sulfate [Ventolin Hfa] 2 puff IH Q6H MDD wheezing 09/15/16 [History] Aspirin [Lo-Dose Aspirin EC] 81 mg PO DAILY 09/15/16 [History] Cholecalciferol (D-3) [Vitamin D] 1,000 unit PO QWEEK 09/15/16 [History] Fluticasone/Salmeterol [Advair 250-50 Diskus] 1 puff IH BID 09/15/16 [History] Lisinopril-HCTZ 20-12.5 [Prinzide 20-12.5] 1 each PO DAILY 09/15/16 [History] Montelukast [Singulair] 10 mg PO DAILY 09/15/16 [History] HYDROcodone/Acet 7.5/325 mg [[place] 7.5-325 mg] 1 tab PO Q6HR PRN #30 tablet [Rx] Allergies/Adverse Reactions: Allergies morphine Allergy (Verified 08/15/15 11:43) Itching propoxyphene [From Darvocet-N] Allergy (Verified 09/15/16 20:32) Vomiting tramadol [From Ultram] Allergy (Verified 10/23/15 09:31) Vomiting Certification: Further, I certify that my clinical findings support that this patient is homebound (i.e. absences from home require considerable and taxing effort and are for medical reasons or [employer] or infrequently or short duration when for other reasons) because: Homebound Reason: Patient requires assistance of a person or device to safely leave home Attestation: My signature below is to certify that this patient is under my care and that I, or nurse practitioner, or a physician's offset press assistant working with me, has a face-to -face encounter with this patient.
[2016-09-18 15:30] VITALS: BP 125/73
[2016-09-18] MEDS ORDERED: Mag Hydrox/Al Hydrox/Simeth 30 ML UDC PO PRN (17:09)
== END 2016-09-18 17:55 | disposition home health service (06) | DRG 482 ==
LOC: 3NENU 19:34
PROVIDERS: ADMIT Internal Medicine; ATTEND Internal Medicine